=== PATIENT | female | born 1995 ===

== ENCOUNTER 2017-02-04 11:40 | Emergency (ER) | payer OTHER ==
[2017-02-04 11:49] VITALS: TEMP 99.9
[2017-02-04] MEDS ORDERED: Sodium Chloride 0.9% 1,000 ML IV STA (12:15)
[2017-02-04] MEDS ORDERED: Dextrose 5%/0.45% NS 1,000 ML IV STA (12:15)
--- NOTE | 2017-02-04 12:19 | ED PDOC ---
Arrival/HPI - General Chief Complaint: GI Problem Time Seen by Provider: 02/04/17 12:01 Historian: Patient - History of Present Illness Narrative History of Present Illness (Text): 02/04/17 12:07 A 21 year old 9 week female, who denies any significant past medical history presents to the emergency department complaining of worsening nausea and vomiting for the past 4 weeks. She is , , with LMP 12/02/16. Patient reports yesterday she was unable to tolerate any PO and therefore she was concerned and decided to come to the emergency department to get evaluated. Patient notes mild epigastric burning and decreased urinary output but denies any fever, chills, diarrhea, chest pain, cough, runny nose, or any other complaints at this time. Patient has seen her OBGYN and was given Diclegis for the nausea and vomiting but it has not brought her any relief. Patient is scheduled to have her first ultrasound on 02/11/17. Time/Duration: > week (4 weeks) Symptom Onset: Sudden Symptom Course: Worsening Quality: Other Activities at Onset: Rest Modifying Factors (Text): no relief with Diclegis Context: Home Associated Symptoms (Text): epigastric discomfort and decreased urination Past Medical History - Provider Review Nursing Documentation Reviewed: Yes - Reproductive Menopause: No - Psychiatric Hx Substance Use: No Family/Social History - Physician Review Nursing Documentation Reviewed: Yes Family/Social History: Unknown Family HX Smoking Status: Unknown If Ever Smoked Hx Alcohol Use: No Hx Substance Use: No Allergies/Home Meds Allergies/Adverse Reactions: Allergies aspirin Allergy (Verified 02/04/17 11:49) SWELLING Review of Systems - Physician Review All systems were reviewed & negative as marked: Yes - Review of Systems Constitutional: absent: Fevers, Other (chills) ENT: absent: Rhinorrhea Respiratory: absent: Cough Cardiovascular: absent: Chest Pain Gastrointestinal: Abdominal Pain, Nausea, Vomiting. absent: Diarrhea Genitourinary Female: Urine Output Changes. absent: Vaginal Bleeding Neurological: absent: Headache, Dizziness Physical Exam Vital Signs Reviewed: Yes Vital Signs Temp Pulse Resp BP Pulse Ox 02/04/17 14:00 91 H 18 114/79 100 02/04/17 12:41 99.9 F H 100 H 18 112/78 99 02/04/17 11:45 99.9 F H 100 H 16 112/78 100 Temperature: Febrile Blood Pressure: Normal Pulse: Tachycardic Respiratory Rate: Normal Appearance: Positive for: Well-Appearing, Non-Toxic, Comfortable Pain Distress: None Mental Status: Positive for: Alert and Oriented X 3 - Systems Exam Head: Present: Atraumatic, Normocephalic Pupils: Present: PERRL Conjunctiva: Present: Normal Ears: Present: NORMAL TM, Normal Canal. No: Erythema, TM Bulging Mouth: Present: Moist Mucous Membranes Pharnyx: Present: Normal. No: ERYTHEMA, EXUDATE, TONSILS ENLARGED Neck: Present: Normal Range of Motion Respiratory/Chest: Present: Clear to Auscultation, Good Air Exchange. No: Respiratory Distress, Accessory Muscle Use Cardiovascular: Present: Normal S1, S2, Tachycardic. No: Murmurs, Irregular Rhythm Abdomen: Present: Normal Bowel Sounds. No: Tenderness, Distention, Peritoneal Signs Back: Present: Normal Inspection Upper Extremity: Present: Normal Inspection. No: Cyanosis, Edema Lower Extremity: Present: Normal Inspection. No: Edema Neurological: Present: GCS=15, CN II-XII Intact, Speech Normal Skin: Present: Warm, Dry, Normal Color. No: Rashes Psychiatric: Present: Alert, Oriented x 3, Normal Insight, Normal Concentration Medical Decision Making ED Course and Treatment: 02/04/17 12:07 Impression: A 21 year old 9 week female with nausea and vomiting. Physical examination reveals no acute finding. Differential Diagnosis include but are not limited to: with hyperemesis vs gastritis Plan: -- Labs -- Urinalysis -- Pepcid, IV Dextrose 5%, Zofran and IV Fluids -- Reassess and disposition Progress Notes: 02/04/17 14:17 Labs consistent with with BHCG > 120K. Patient given zofran and IVF and feeling much better in the ED and tolerating po. Will need to give her script for zofran as the diclegis is not helping till she follows up as scheduled with her OB in three days. - Lab Interpretations Lab Results: 02/04/17 12:30 02/04/17 12:30 Lab Results 02/04/17 12:47: Urine Color Yellow, Urine Appearance Clear, Urine pH 7.0, Ur Specific Hunter 1.015, Urine Protein Negative, Urine Glucose (UA) Negative, Urine Ketones Negative, Urine Blood Negative, Urine Nitrate Negative, Urine Bilirubin Negative, Urine Urobilinogen 0.2, Ur Leukocyte Esterase Negative 02/04/17 12:30: Sodium 136, Potassium 4.1, Chloride 97 L, Carbon Dioxide 26, Anion Gap 17, BUN 8, Creatinine 0.6, Est GFR ( Amer) > 60, Est GFR (Non- Af Amer) > 60, Random Glucose 83, Calcium 10.7 H, Total Bilirubin 0.8, AST 24, ALT 37, Alkaline Phosphatase 57, Total Protein 9.5 H, Albumin 4.9 H, Globulin 4.7, Albumin/Globulin Ratio 1.0 L, Lipase 73 02/04/17 12:30: WBC 8.1, RBC 4.63, Hgb 14.5, Hct 40.1, MCV 86.6, MCH 31.3, MCHC 36.2, RDW 13.1, Plt Count 241, MPV 9.9, Gran % 71.6 H, Lymph % (Auto) 18.9 L, Stearns % (Auto) 7.2 H, Eos % (Auto) 2.1, Baso % (Auto) 0.2, Gran # 5.80, Lymph # 1.5, Stearns # 0.6, Eos # 0.2, Baso # 0.02 02/04/17 12:30: Beta HCG, Quant [id number] H I have reviewed the lab results: Yes - Medication Orders Current Medication Orders: Discontinued Medications Famotidine (Pepcid) 20 mg IVP STAT STA Stop: 02/04/17 12:16 Last Admin: 02/04/17 13:00 Dose: 20 mg Dextrose/Sodium Chloride (Dextrose 5%/0.45% Ns 1000 Ml) 1,000 mls @ 999 mls/hr IV .Q1H1M STA Stop: 02/04/17 13:15 Last Admin: 02/04/17 14:17 Dose: 999 mls/hr Sodium Chloride (Sodium Chloride 0.9%) 1,000 mls @ 999 mls/hr IV .Q1H1M STA Stop: 02/04/17 13:15 Last Admin: 02/04/17 13:00 Dose: 999 mls/hr Ondansetron HCl (Zofran Inj) 4 mg IVP STAT STA Stop: 02/04/17 12:16 Last Admin: 02/04/17 13:00 Dose: 4 mg - Scribe Statement The provider has reviewed the documentation as recorded by the Yesenia Pennington Provider Yesenia Attestation: All medical record entries made by the Yesenia were at my direction and personally dictated by me. I have reviewed the chart and agree that the record accurately reflects my personal performance of the history, physical exam, medical decision making, and the department course for this patient. I have also personally directed, reviewed, and agree with the discharge instructions and disposition. Disposition/Present on Arrival - Present on Arrival Any Indicators Present on Arrival: No History of DVT/PE: No History of Uncontrolled Diabetes: No Urinary Catheter: No History of Decub. Ulcer: No History Surgical Site Infection Following: None - Disposition Have Diagnosis and Disposition been Completed?: Yes Diagnosis: Hyperemesis gravidarum Disposition: HOME/ ROUTINE Disposition Time: 14:50 Patient Plan: Discharge Patient Problems: Current Active Problems Problem Status Onset Hyperemesis gravidarum Acute Condition: GOOD Discharge Instructions (ExitCare): Hyperemesis Gravidarum (ED) Print Language: ROMANIAN Additional Instructions: Drink plenty of fluids. Eat small but more frequent amounts as tolerated. You may use the zofran as prescribed for nausae/vomiting. Follow up with your obgyn as scheduled. Return to the emergency department if any new concerning symptoms. Prescriptions: Ondansetron ODT [Zofran ODT] 1 tab PO Q8H PRN #10 odt PRN Reason: Nausea/Vomiting [facility] - Follow up with primary
[2017-02-04 12:40] LABS: ADD MANUAL DIFF? NO
[2017-02-04 12:44] VITALS: RESP 18
[2017-02-04 12:45] LABS: BASO # 0.02 K/mm3 (0.0-2.0); BASO % 0.2 % (0.0-3.0); EOS # 0.2 (0.0-0.7); EOS % 2.1 % (1.5-5.0); GRAN % 71.6 % (50.0-68.0); HEMATOCRIT 40.1 % (36.0-48.0); LYMPH # 1.5 (1.2-3.4); LYMPH % 18.9 % (22.0-35.0); MEAN CELL VOLUME 86.6 fL (80.0-105.0); MEAN CORPUSCULAR HEMOGLOBIN 31.3 pg (25.0-35.0); MEAN CORPUSCULAR HGB CONC 36.2 g/dl (31.0-37.0); MEAN PLATELET VOLUME 9.9 fl (7.0-11.0); MONO # 0.6 (0.1-0.6); MONO % 7.2 % (1.0-6.0); PLATELET COUNT 241 10^3/uL (120.0-450.0); RED CELL DISTRIBUTION WIDTH 13.1 % (11.5-14.5); WHITE BLOOD COUNT 8.1 10^3/ul (4.5-11.0)
[2017-02-04 12:52] LABS: URINE BILIRUBIN NEGATIVE (NEGATIVE); URINE BLOOD NEGATIVE (NEGATIVE); URINE GLUCOSE (UA) NEGATIVE (NEGATIVE); URINE KETONE NEGATIVE (NEGATIVE); URINE LEUKOCYTE ESTERASE NEGATIVE Leu/uL (NEGATIVE); URINE PROTEIN NEGATIVE mg/dL (<30 mg/dL); URINE UROBILINOGEN 0.2 E.U./dL (<1 E.U./dL)
[2017-02-04 12:53] LABS: ALKALINE PHOSPHATASE 57 U/L (38-133); ALT/SGPT 37 U/L (7-56); AST/SGOT 24 U/L (15-39); BILIRUBIN,TOTAL 0.8 mg/dL (0.2-1.3); BLOOD UREA NITROGEN 8 mg/dL (7-21); CALCIUM 10.7 mg/dL (8.4-10.5); CARBON DIOXIDE 26 mmol/L (21-33); CHLORIDE 97 mmol/L (98-107); GFR AFRICAN-AMERICAN > 60; GLUCOSE,RANDOM 83 mg/dL (70-110); LIPASE 73 U/L (23-300); POTASSIUM 4.1 mmol/L (3.6-5.0); SODIUM 136 mmol/L (132-148); TOTAL PROTEIN 9.5 g/dL (5.8-8.3)
[2017-02-04 12:53] LABS: URINE APPEARANCE CLEAR (CLEAR); URINE COLOR YELLOW (YELLOW)
[2017-02-04 14:20] VITALS: BP 114/79; PULSE 91; O2SAT 100
== END 2017-02-04 15:45 | disposition home or self-care (01) ==
LOC: MERGE 11:40 → ED 11:40
DX: O21.0 Mild hyperemesis gravidarum (principal); Z3A.09 9 weeks gestation of pregnancy
CPT/HCPCS: 80053; 81003; 83690; 84702; 85025; 96374; 96375; 99283; J2405; J7040; J7042

== ENCOUNTER 2017-03-07 15:05 | Emergency (ER) | payer OTHER ==
[2017-03-07 15:24] VITALS: BMI 21.4
[2017-03-07 15:29] VITALS: BP 122/71; PULSE 100; RESP 16; TEMP 99; O2SAT 98
[2017-03-07] MEDS ORDERED: DiphenhydrAMINE 12.5 mg/5 ml LIQ UD (5 ml) PO PRN (16:01)
--- NOTE | 2017-03-07 16:01 | ED PDOC ---
Arrival/HPI - General Chief Complaint: Abnormal Skin Integrity Time Seen by Provider: 03/07/17 15:48 Historian: Patient - History of Present Illness Narrative History of Present Illness (Text): 03/07/17 15:49 This 21 yo female , presents to this ED c/o a rash x 1 day. Patient denies fever, sick contact, recent travel, or sob. Denies abdominal pain, pelvic pain , vaginal bleeding. Time/Duration: Other (1 da) Context: Home Past Medical History - Provider Review Nursing Documentation Reviewed: Yes - Psychiatric Hx Substance Use: No - Anesthesia Hx Anesthesia: No Family/Social History - Physician Review Nursing Documentation Reviewed: Yes Family/Social History: No Known Family HX Smoking Status: Never Smoked Hx Alcohol Use: No Hx Substance Use: No Allergies/Home Meds Allergies/Adverse Reactions: Allergies aspirin Allergy (Verified 03/07/17 15:24) SWELLING Home Medications: Home Meds Medication Instructions Recorded Confirmed Multivit/Folic Acid/I 1 tab PO DAILY 03/07/17 03/07/17 [] Review of Systems - Review of Systems Constitutional: Normal. absent: Fatigue, Weight Change, Fevers Eyes: Normal ENT: Normal Respiratory: Normal Cardiovascular: Normal Gastrointestinal: Normal Genitourinary Female: Normal Musculoskeletal: Normal Skin: Rash, Pruritis. absent: Skin Lesions, Laceration, Abscess Neurological: Normal Endocrine: Normal Hemo/Lymphatic: Normal Psychiatric: Normal Physical Exam Vital Signs Temp Pulse Resp BP Pulse Ox 03/07/17 15:24 99 F 100 H 16 122/71 98 Temperature: Afebrile Blood Pressure: Normal Pulse: Regular Respiratory Rate: Normal Appearance: Positive for: Well-Appearing, Non-Toxic, Comfortable Pain Distress: None Mental Status: Positive for: Alert and Oriented X 3 - Systems Exam Head: Present: Atraumatic, Normocephalic Pupils: Present: PERRL Extroacular Muscles: Present: EOMI Conjunctiva: Present: Normal Mouth: Present: Moist Mucous Membranes Neck: Present: Normal Range of Motion Respiratory/Chest: Present: Clear to Auscultation, Good Air Exchange. No: Respiratory Distress, Accessory Muscle Use Cardiovascular: Present: Regular Rate and Rhythm, Normal S1, S2. No: Murmurs Abdomen: Present: Normal Bowel Sounds. No: Tenderness, Distention, Peritoneal Signs Back: Present: Normal Inspection Upper Extremity: Present: Normal Inspection. No: Cyanosis, Edema Lower Extremity: Present: Normal Inspection. No: Edema Neurological: Present: GCS=15, CN II-XII Intact, Speech Normal Skin: Present: Warm, Dry, Rashes (Papular like rash over right mid thigh, right lower leg, left thigh, and left forearm. It resemble insect bite. No cellulitis, or abscess), Normal Color Psychiatric: Present: Alert, Oriented x 3, Normal Insight, Normal Concentration Medical Decision Making ED Course and Treatment: 03/07/17 16:03 Re-evaluation. Patient feels better. Discussed results and plan with patient who expresses understanding. All questions answered and there is agreement with the plan to discharge home with instructions. Patient stable for discharge. Return if symptoms persist or worsen. Re-evaluation Time: 16:03 Reassessment Condition: Re-examined, Improved Disposition/Present on Arrival - Present on Arrival Any Indicators Present on Arrival: No History of DVT/PE: No History of Uncontrolled Diabetes: No Urinary Catheter: No History of Decub. Ulcer: No History Surgical Site Infection Following: None - Disposition Have Diagnosis and Disposition been Completed?: Yes Diagnosis: Rash and nonspecific skin eruption Disposition: HOME/ ROUTINE Disposition Time: 16:04 Patient Plan: Discharge Condition: GOOD Discharge Instructions (ExitCare): Acute Rash (ED) Additional Instructions: Call private [employer] doctor for follow ui[p visit in 1-2 days. Take medication as instructed. Return to emergency if symptoms worsen. Return to emergency if symptoms worsen. Prescriptions: DiphenhydrAMINE [Benadryl] 25 mg PO Q6H PRN #20 cap PRN Reason: Rash Referrals: Sadia Oneal, [Primary Care Provider] - [facility] [[facility]] - Follow up with primary Forms: WORK NOTE
== END 2017-03-07 16:32 | disposition home or self-care (01) ==
LOC: ED 15:05
DX: R21 Rash and other nonspecific skin eruption (principal)

== ENCOUNTER 2017-10-23 19:40 | Emergency (ER) | payer OTHER ==
[2017-10-23 19:41] VITALS: BMI 21.4
[2017-10-23 20:14] VITALS: TEMP 98; O2SAT 100
--- NOTE | 2017-10-23 22:01 | ED PDOC ---
Arrival/HPI - General Chief Complaint: Abnormal Skin Integrity Time Seen by Provider: 10/23/17 21:58 Historian: Patient, Spouse - History of Present Illness Narrative History of Present Illness (Text): 10/23/17 21:58 This 22 yo female presents to this ED c/o left facial rash near lips x 7 days. Patient stated rash developed into a vesicle with clear fluids. Patient thinks she has herpes labialis. Patient denies other complains. Time/Duration: 1 week Quality: Aching Context: Home Past Medical History - Provider Review Nursing Documentation Reviewed: Yes - Infectious Disease Hx of Infectious Diseases: None - Psychiatric Hx Substance Use: No - Anesthesia Hx Anesthesia: No Family/Social History - Physician Review Nursing Documentation Reviewed: Yes Family/Social History: Other (noncontributory) Smoking Status: Never Smoked Hx Alcohol Use: No Hx Substance Use: No Allergies/Home Meds Allergies/Adverse Reactions: Allergies aspirin Allergy (Mild, Verified 10/23/17 20:11) SWELLING Review of Systems - Review of Systems Constitutional: Normal. absent: Fatigue, Weight Change, Fevers Eyes: Normal ENT: Normal Respiratory: Normal Cardiovascular: Normal Gastrointestinal: Normal Genitourinary Female: Normal Musculoskeletal: Normal Skin: Rash (painful) Neurological: Normal Endocrine: Normal Hemo/Lymphatic: Normal Psychiatric: Normal Physical Exam Vital Signs Temp Pulse Resp BP Pulse Ox 10/23/17 20:11 98.0 F 74 18 117/79 100 Temperature: Afebrile Blood Pressure: Normal Pulse: Regular Respiratory Rate: Normal Appearance: Positive for: Well-Appearing, Non-Toxic, Comfortable Pain Distress: None Mental Status: Positive for: Alert and Oriented X 3 - Systems Exam Head: Present: Atraumatic, Normocephalic Pupils: Present: PERRL Extroacular Muscles: Present: EOMI Conjunctiva: Present: Normal Mouth: Present: Moist Mucous Membranes Neck: Present: Normal Range of Motion Back: Present: Normal Inspection Upper Extremity: Present: Normal Inspection, Normal ROM Lower Extremity: Present: Normal Inspection, Normal ROM Neurological: Present: GCS=15, CN II-XII Intact, Speech Normal Skin: Present: Warm, Dry, Rashes (left chin tender vesicular rash, which it may represents herpes labialis. There is a small tender submandibular reactive lymph node. No cellulitis or abscess) Psychiatric: Present: Alert, Oriented x 3, Normal Insight, Normal Concentration Medical Decision Making ED Course and Treatment: 10/23/17 22:01 Re-evaluation. Patient feels better. Discussed results and plan with patient who expresses understanding. All questions answered and there is agreement with the plan to discharge home with instructions. Patient stable for discharge. Return if symptoms persist or worsen. Re-evaluation Time: 22:02 Reassessment Condition: Re-examined, Improved Disposition/Present on Arrival - Present on Arrival Any Indicators Present on Arrival: No History of DVT/PE: No History of Uncontrolled Diabetes: No Urinary Catheter: No History of Decub. Ulcer: No History Surgical Site Infection Following: None - Disposition Have Diagnosis and Disposition been Completed?: Yes Diagnosis: Herpes labialis Disposition: HOME/ ROUTINE Disposition Time: 22:02 Patient Plan: Discharge Condition: GOOD Discharge Instructions (ExitCare): Oral Herpes Simplex Virus Infections (ED) Additional Instructions: Call private doctor or clinic for follow up visit in 1-2 days. Wash your hands before and after touching rash. Return to emegency if symptoms worsen. Prescriptions: Mupirocin 2% Ointment [Bactroban Ointment] 1 appl TP BID #1 tube Valacyclovir HCl [Valtrex] 1 gm PO TID #21 tablet Referrals: Sadia Oneal, [Primary Care Provider] - Follow up with primary [facility] [Outside] - Follow up with primary [facility] [Outside] - Follow up with primary
[2017-10-23 22:16] VITALS: BP 115/78; PULSE 80; RESP 16
== END 2017-10-23 22:13 | disposition home or self-care (01) ==
LOC: ED 19:40
DX: B00.1 Herpesviral vesicular dermatitis (principal)